=== PATIENT | female | born 1940 | race Caucasian/White ===

== ENCOUNTER 2019-09-08 22:27 | Observation (INO) ==
[2019-09-08 23:44] LABS: Basophils % 0.5 %; Eosinophils # 0.5 K/mcL (0.0-0.6); Eosinophils % 6.4 %; Hematocrit 31.6 % (35.3-44.9); Hemoglobin 10.6 g/dL (11.5-15.4); Immature Granulocytes % 0.2 % (0-4); Lymphocytes % 23.3 %; Mean Corpuscular HGB Conc 33.5 g/dL (31.6-35.5); Mean Corpuscular Hemoglobin 30.5 pg (28.0-33.3); Mean Corpuscular Volume 91.1 fL (83.0-100.0); Mean Platelet Volume 10.7 fL (9.4-12.4); Monocytes # 0.6 K/mcL (0.0-1.3); Monocytes % 6.8 %; Neutrophils # 5.3 K/mcL (1.6-8.9); Platelet Count 183 K/mcL (140-400); Red Blood Count 3.47 M/mcL (3.82-4.97); Red Cell Distribution Width 12.5 % (11.5-14.5); Segmented Neutrophils % 62.8 %; White Blood Count 8.4 K/mcL (4.3-11.1)
[2019-09-09 00:07] LABS: Troponin I < 0.03 ng/mL (< 0.04)
[2019-09-09 00:24] LABS: BUN/Creatinine Ratio 20 (6-26); Blood Urea Nitrogen 29 mg/dL (8-23); Calcium 9.7 mg/dL (8.6-10.3); Carbon Dioxide 20 mEq/L (23-29); Chloride 111 mEq/L (98-107); Glucose 116 mg/dL (70-105); Osmolality,Calculated 299 (280-300); Potassium 4.3 mEq/L (3.5-5.1); Sodium 141 mEq/L (136-145); eGFR For African Americans 43 (> 60); eGFR For Non-African Americans 35 (> 60)
[2019-09-09 00:57] LABS: Bilirubin,Urine Negative (Negative); Blood,Urine Negative (Negative); Clarity,Urine Cloudy (Clear); Color,Urine Yellow (Yellow); Glucose,Urine (UA) Normal (Normal); Ketones,Urine Negative (Negative); Leukocyte Esterase,Urine Small (Negative); Nitrite,Urine Negative (Negative); Protein,Urine Trace mg/dL (Neg-Trace); Specific Gravity,Urine 1.017 (1.010-1.025); Urobilinogen,Urine Normal (Normal)
[2019-09-09 00:58] LABS: Bacteria,Urine Few per hpf (None-Few); Hyaline Casts,Urine None Seen per lpf (None-Few); Squamous Epithelial Cell,Urine Many per lpf (None-Few)
[2019-09-09] MEDS ORDERED: Naloxone 0.4 MG/ML INJ IVP PRN (04:20)
[2019-09-09] MEDS ORDERED: 0.9 % Sodium Chloride 1,000 ML IVC SCH (04:30)
[2019-09-09 06:22] LABS: Basophils % 0.4 %; Eosinophils # 0.6 K/mcL (0.0-0.6); Eosinophils % 7.8 %; Hematocrit 30.9 % (35.3-44.9); Hemoglobin 10.5 g/dL (11.5-15.4); Immature Granulocytes % 0.3 % (0-4); Lymphocytes # 1.7 K/mcL (0.6-4.6); Lymphocytes % 24.8 %; Mean Corpuscular Hemoglobin 30.9 pg (28.0-33.3); Mean Corpuscular Volume 90.9 fL (83.0-100.0); Mean Platelet Volume 10.8 fL (9.4-12.4); Monocytes # 0.5 K/mcL (0.0-1.3); Monocytes % 6.4 %; Neutrophils # 4.2 K/mcL (1.6-8.9); Platelet Count 185 K/mcL (140-400); Red Cell Distribution Width 12.3 % (11.5-14.5); Retculocyte # 0.06 M/mcL (0.05-0.10); Reticulocyte % 1.9 % (1.6-2.8); Segmented Neutrophils % 60.3 %
[2019-09-09 06:29] LABS: INR 0.9; Prothrombin Time 10.6 Seconds (9.4-12.1)
[2019-09-09 06:50] LABS: Albumin 3.9 g/dL (3.5-5.7); Albumin/Globulin Ratio 1.6 (1.1-2.2); Bilirubin,Total 0.7 mg/dL (0.3-1.0); Calcium 9.7 mg/dL (8.6-10.3); Globulin 2.5 g/dL (2.4-3.5); Magnesium 1.8 mg/dL (1.6-2.6); Phosphorous 3.4 mg/dL (2.7-4.5); Potassium 4.1 mEq/L (3.5-5.1); Total Protein 6.4 g/dL (6.4-8.9)
[2019-09-09 07:10] LABS: Folate 16.6 ng/mL (3.0-16.0)
[2019-09-09 08:53] LABS: Estimated Average Glucose 146 mg/dl
[2019-09-09] MEDS ORDERED: Cyanocobalamin (B-12) 1,000 MCG/ML VIAL IM ONE (12:06)
[2019-09-09] MEDS ORDERED: D5% in Water 1,000 ML IVC PRN (12:06)
[2019-09-09] MEDS ORDERED: *HR* Dextrose 50 % in Water (Syg) 50 ML SYRINGE IVP PRN (12:06)
[2019-09-09] MEDS ORDERED: Dextrose Gel 15 GM/37.5 ML TUBE PO PRN ×2 (12:06)
[2019-09-09] MEDS ORDERED: Perflutren Lipid Microsphere 1.3 ML in 0.9 % Sodium Chloride 8.7 ML IVP ONE (15:21)
[2019-09-09] MEDS ORDERED: Ringers Solution, Lactated 1,000 ML IVC SCH (15:45)
[2019-09-09 16:07] LABS: Bilirubin,Urine Negative (Negative); Blood,Urine Negative (Negative); Clarity,Urine Clear (Clear); Color,Urine Yellow (Yellow); Glucose,Urine (UA) 100 mg/dL (Normal); Ketones,Urine Negative (Negative); Leukocyte Esterase,Urine Trace (Negative); Nitrite,Urine Negative (Negative); Protein,Urine Negative (Neg-Trace); Specific Gravity,Urine 1.012 (1.010-1.025); Urobilinogen,Urine Normal (Normal)
[2019-09-09 16:08] LABS: Sodium, Urine 115.1 mEq/L
[2019-09-09 16:10] LABS: Bacteria,Urine None Seen per hpf (None-Few); Hyaline Casts,Urine None Seen per lpf (None-Few); RBC,Urine 0-3 per hpf (0-3); Squamous Epithelial Cell,Urine Many per lpf (None-Few)
[2019-09-09] MEDS: Insulin LISPRO 300 UNITS/3 ML VIAL SQ SCH (17:05)
[2019-09-10 07:14] LABS: Basophils % 0.4 %; Eosinophils # 0.4 K/mcL (0.0-0.6); Eosinophils % 6.3 %; Hematocrit 30.9 % (35.3-44.9); Hemoglobin 10.4 g/dL (11.5-15.4); Immature Granulocytes % 0.3 % (0-4); Lymphocytes # 1.3 K/mcL (0.6-4.6); Lymphocytes % 19.3 %; Mean Corpuscular HGB Conc 33.7 g/dL (31.6-35.5); Mean Corpuscular Hemoglobin 30.3 pg (28.0-33.3); Mean Corpuscular Volume 90.1 fL (83.0-100.0); Mean Platelet Volume 10.7 fL (9.4-12.4); Monocytes # 0.5 K/mcL (0.0-1.3); Monocytes % 7.3 %; Neutrophils # 4.6 K/mcL (1.6-8.9); Platelet Count 181 K/mcL (140-400); Red Blood Count 3.43 M/mcL (3.82-4.97); Red Cell Distribution Width 12.2 % (11.5-14.5); Segmented Neutrophils % 66.4 %; White Blood Count 6.9 K/mcL (4.3-11.1)
[2019-09-10 07:33] LABS: Calcium 9.8 mg/dL (8.6-10.3); Potassium 3.9 mEq/L (3.5-5.1)
[2019-09-10 07:49] LABS: Thyroid Stimulating Hormone 0.29 mcIU/mL (0.340-5.600)
[2019-09-10] MEDS ORDERED: Cyanocobalamin (B-12) 1,000 MCG/ML VIAL IM SCH (09:00)
[2019-09-10] MEDS: Insulin LISPRO 300 UNITS/3 ML VIAL SQ SCH ×2 (09:41→13:12)
[2019-09-10] MEDS ORDERED: amLODIPine 5 MG TABLET PO SCH (10:30)
[2019-09-10 14:00] VITALS: BP 159/86
== END 2019-09-10 15:46 | disposition home or self-care (01) ==
LOC: CDU 22:27 → EMEROOARM 22:27 → SUATTDRO 09-09 02:18 → CDU 09-09 02:45
PROVIDERS: ADMIT Family Medicine; ATTEND Internal Medicine